=== PATIENT | male | born 1975 | race Caucasian/White ===

== ENCOUNTER 2016-12-03 07:04 | Emergency (ER) | payer OTHER ==
--- NOTE | ~2016-12-03 | CT4 ---
[facility] A Service of [facility] & [facility] [place] RADIOLOGY TEXT RESULTS PATIENT: FELIPE PEREIRA LOCATION: [facility] : 75 UNIT #: [id number] AGE: [address]: Cecil Stark MD SEX: M ORDER DR: [id number] [facility] [address] [place], [place] [address] [id number] MR#: [id number] Acc #: [id number] NAME: FELIPE PEREIRA : 1975 SEX: M STUDY DATE/TIME: 12/03/2016 8:41 UNIT: [facility] ROOM: STUDY DESCRIPTION: CT Abd and Pelv Wo Cont Attending Physician: Cecil Stark M.D. Ordering Physician: Cecil Stark M.D. Primary Care Physician: Trevor Sprague Jr., M.D. MEDICAL IMAGING REPORT This report is preliminary unless electronic signature is present EXAM CT abdomen and pelvis without contrast HISTORY Stomachache, weakness, headache, fever, diarrhea since 12/02/2016. TECHNIQUE This CT exam was performed with one or more of the following radiation dose reduction techniques: automatic exposure control, adjustment of mA and/or kV according to patient size, and iterative reconstruction. COMMENT CT of the abdomen and pelvis performed without IV or oral contrast media using urinary tract stone protocol. Lack of intravenous and oral contrast media limits evaluation for pathology other than urinary tract calculus disease. There is a small amount of dependent atelectasis at lung bases. CT ABDOMEN: Liver shows evidence for old granulomatous disease as does the spleen and there are some calcified lymph nodes portable habitus region and adjacent to head of the pancreas again identified likely related to old granulomatous disease. Noncontrast pancreas unremarkable otherwise. The adrenal glands unremarkable. There is nothing to suggest intrarenal calculus or hydronephrosis. There is mild bilateral perinephric stranding. No ureteral calculus is suspected. The bladder is partially decompressed. Evaluation of the remainder of the pelvis shows no free fluid. There are air fluid levels in the left colon consistent with diarrhea history indicated by the patient. There is stranding adjacent to the cecum with minimal fluid in the right pericolic gutter. There are a few air-fluid levels within nondistended loops of small bowel. There is nothing to suggest bowel obstruction. There are some prominent lymph nodes adjacent to the cecum. No definitely normal-appearing STS. [facility] A Service of [facility] & [facility] [place] RADIOLOGY TEXT RESULTS PATIENT: FELIPE PEREIRA LOCATION: [facility] : 75 UNIT #: [id number] AGE: [address]: Cecil Stark MD SEX: M ORDER DR: appendix is seen. The findings could be due to some infectious or inflammatory colitis but given the most prominent involvement in the region of the cecum and the inability to document a normal appendix, I cannot exclude early appendicitis. No drainable fluid collection is appreciated. There is no free intraperitoneal air. Please correlate further with the patient's clinical presentation. Prominent lymph nodes are noted towards the right lower quadrant region in the mesentery. Mild degenerative changes in the spine. IMPRESSION 1. Study is limited by the lack of IV and oral contrast media for evaluation for pathology other than urinary tract calculus disease. No evidence for urinary tract calculus disease. 2. There are inflammatory changes around the cecum with stranding in the fat and a small amount of fluid the pericolic gutter. There is no drainable fluid collection. Prominent mesenteric lymph nodes are seen to the right lower quadrant also. I cannot identify a normal-appearing appendix. Findings could be due to colitis centered at the right lower quadrant but unfortunately I cannot exclude appendicitis on this exam. There is no evidence for bowel obstruction. There are air-fluid levels in the left colon consistent with diarrhea history provided. There are a few air-fluid levels within nondistended loops of small bowel. There is no free intraperitoneal air. 3. Evidence of old granulomatous disease. STAT * RESULT Dictated by... Mely Silverio M.D. THIS IS AN ELECTRONICALLY VERIFIED REPORT Mely Silverio M.D. at 12/03/2016 4:01 PM Carlene TD: 12/03/2016 10:08 JOB #: [id number] MEDICAL IMAGING REPORT COPY
[2016-12-03 07:29] LABS: URINE SOURCE CLEAN CATCH
[2016-12-03 07:41] LABS: URINE APPEARANCE CLOUDY; URINE BILIRUBIN NEG (NEG); URINE BLOOD NEG (NEG); URINE COLOR DK YELLOW; URINE GLUCOSE NEG (NEG); URINE KETONE TRACE (NEG); URINE LEUKOCYTE ESTERASE NEG (NEG); URINE NITRATE NEG (NEG); URINE PH 5.5 (5-8); URINE PROTEIN NEG (NEG); URINE SPECIFIC GRAVITY 1.027 (1.003-1.035); URINE UROBILINOGEN 0.2 MG/DL (NEG)
[2016-12-03 07:41] LABS: BASOPHIL% 0.2 % (0-2.5); HEMATOCRIT 47.5 % (38.0-50.0); HEMOGLOBIN 16.2 gm/dL (13.0-16.0); LYMPHOCYTE# 1.2 X10e3 (1.0-3.5); LYMPHOCYTE% 6.5 % (17.0-45.0); MEAN CELL VOLUME 84.2 FL (83-96); MEAN CORPUSCULAR HEMOGLOBIN 28.7 PG (28-34); MEAN PLATELET VOLUME 8.8 FL (6.5-11.5); MONOCYTE# 1.6 X10e3 (0-1.0); MONOCYTE% 8.6 % (3.0-12.0); NEUTROPHIL# 15.9 X10e3 (1.5-7.1); NEUTROPHIL% 84.7 % (40-75); PLATELET COUNT 234 X10e3 (140-420); RED BLOOD COUNT 5.64 X10e (3.90-5.60); RED CELL DISTRIBUTION WIDTH 12.7 % (11.0-15.5); WHITE BLOOD COUNT 18.8 X10e3 (4.0-10.5)
[2016-12-03 07:42] LABS: DIFF IND YES
[2016-12-03 07:54] LABS: CULTURE INDICATED? NO
[2016-12-03 08:13] LABS: PLATELET ESTIMATE NORMAL (NORMAL); RBC NORMAL YES
[2016-12-03 08:23] LABS: ALBUMIN SERUM 3.9 g/dL (3.5-5.0); ALKALINE PHOSPHATASE 44 U/L (32-92); ALT (SGPT) 27 U/L (10-40); AMYLASE 17 U/L (0-46); AST (SGOT) 22 U/L (10-42); BILIRUBIN, DIRECT 0.2 mg/dL (0.0-0.2); BILIRUBIN,INDIRECT 0.8 mg/dL (0.0-0.9); BLOOD UREA NITROGEN 10 mg/dL (9-23); BUN/CREATININE RATIO 9.09; CARBON DIOXIDE 25 mmol/L (22-31); CHLORIDE 102 mmol/L (100-111); CREATININE SERUM 1.1 mg/dL (0.6-1.4); GLOM FILT RATE Estimated ABOVE60 mL/min (>60); GLUCOSE FASTING 119 mg/dL (70-110); LIPASE 19 U/L (22-51); POTASSIUM 3.8 mmol/L (3.5-5.1); PROTEIN TOTAL SERUM 6.8 g/dL (6.0-8.3); SODIUM 137 mmol/L (135-145)
== END 2016-12-03 10:50 | disposition home or self-care (01) ==
LOC: CED 07:04
PROVIDERS: Emergency Medicine
DX: R10.32 Left lower quadrant pain (principal); R11.2 Nausea with vomiting, unspecified; R19.7 Diarrhea, unspecified; I10 Essential (primary) hypertension
CPT/HCPCS: 36415; 74176; 80048; 80076; 81003; 82150; 83690; 85025; 96361; 96374; 96375; 99284; J1885; J2270; J2405